=== PATIENT | male | born 1960 | race American Indian/Alaskan Native ===

== ENCOUNTER 2017-02-05 07:19 | Observation (INO) | payer OTHER ==
[2017-02-05 07:24] VITALS: TEMP 98.1
--- NOTE | 2017-02-05 07:37 | C.PDOC ---
Chief Complaint (Nursing): Abdominal Pain Past Medical History Vital Signs: Last Vital Signs Temp 98.1 F 02/05/17 07:23 Pulse 62 02/05/17 07:23 Resp 14 02/05/17 07:23 BP 185/111 H 02/05/17 07:23 Pulse Ox 100 02/05/17 07:23 Family History: States: Unknown Family Hx - Social History Hx Alcohol Use: Yes Hx Substance Use: No - Immunization History Hx Tetanus Toxoid Vaccination: No Hx Influenza Vaccination: No Hx Pneumococcal Vaccination: No ED Course And Treatment O2 Sat by Pulse Oximetry: 100 Disposition - Disposition Forms: [employer] ([place])
--- NOTE | 2017-02-05 07:53 | C.PDOC ---
History Of Present Illness 56-YEAR-OLD MALE, PRESENTS TO THE EMERGENCY DEPARTMENT WITH COMPLAINTS OF R SIDED ABD PAIN SINCE YEST MORNING. PAIN IS WAX WANE +NAUSEA. PS HO CONSTIPATION BUT NO RELIEF W MG CITRATE. NO FEVER, UTI SX. DENIES PSH. PS "PAIN MAKES MY BLOOD PRESSURE HIGH" EXAM MILD DIST NONTOXIC ABD +RLQ/RUQ TEND MILD SOFT NO R/G GOOD TURGOR REMAINDER NEG Time Seen by Provider: 02/05/17 07:37 Chief Complaint (Nursing): Abdominal Pain History Per: Patient History/Exam Limitations: no limitations Onset/Duration Of Symptoms: Days Past Medical History Reviewed: Historical Data, Nursing Documentation, Vital Signs Vital Signs: Last Vital Signs Temp 98.1 F 02/05/17 07:23 Pulse 69 02/05/17 12:01 Resp 16 02/05/17 12:01 BP 149/75 02/05/17 12:01 Pulse Ox 98 02/05/17 12:01 Family History: States: No Known Family Hx - Social History Hx Alcohol Use: Yes Hx Substance Use: No - Immunization History Hx Tetanus Toxoid Vaccination: No Hx Influenza Vaccination: No Hx Pneumococcal Vaccination: No Review Of Systems Except As Marked, All Systems Reviewed And Found Negative. Constitutional: Negative for: Fever Cardiovascular: Negative for: Chest Pain Respiratory: Negative for: Cough, Shortness of Breath Gastrointestinal: Positive for: Nausea, Abdominal Pain, Constipation Musculoskeletal: Negative for: Back Pain Neurological: Negative for: Weakness, Numbness, Headache, Dizziness Physical Exam - Physical Exam Appears: Non-toxic, No Acute Distress Skin: Warm, Dry, No Rash, Other (good turgor) Eye(s): bilateral: Normal Inspection Oral Mucosa: Moist Lips: Normal Appearing Neck: Normal ROM Chest: Symmetrical Cardiovascular: Rhythm Regular, No Murmur Respiratory: Normal Breath Sounds, No Accessory Muscle Use Gastrointestinal/Abdominal: Soft, Tenderness (RLQ/RUQ), No Guarding, No Rebound Extremity: Normal ROM Neurological/Psych: Oriented x3, Normal Speech ED Course And Treatment - Laboratory Results Result Diagrams: 02/05/17 08:21 02/05/17 08:21 ECG: Interpreted By In ECG Rhythm: Sinus Bradycardia ECG Interpretation: No Acute Changes Rate From EC O2 Sat by Pulse Oximetry: 100 Pulse Ox Interpretation: Normal ED OBSERVATION Discharge: Yes Date of observation admission: 02/05/17 Time of observation admission: 07:45 - Observation admission statement Patient is being placed in observation because:: ABD PAIN, NAUSEA - Goals of Observation Goals of observation are:: SX IMPROVE, NEG ACUT EABD - Progress Note Progress Note: 02/05/17 10:37 CO RECUR PAIN. EXAM [facility] VSS. WILL US RO ACUTE MALACHI 02/05/17 11:47 FEELS BETTER. ABD NEG. NO S/S ACUTE ABD. Disposition Counseled Patient/Family Regarding: Studies Performed, Diagnosis, Need For Followup, Rx Given - Disposition Disposition: HOME/ ROUTINE Disposition Time: 11:48 Condition: IMPROVED - Clinical Impression Clinical Impression: Biliary colic - Scribe Statement The provider has reviewed the documentation as recorded by the Scribe (Ya Lopez) All medical record entries made by the Scribe were at my direction and personally dictated by me. I have reviewed the chart and agree that the record accurately reflects my personal performance of the history, physical exam, medical decision making, and the department course for this patient. I have also personally directed, reviewed, and agree with the discharge instructions and disposition.
[2017-02-05] MEDS ORDERED: Sodium Chloride 0.9% 1,000 ML IV ONE (07:54)
[2017-02-05] MEDS ORDERED: Iohexol 240 (50 ml) PO STA (07:54)
[2017-02-05] MEDS ORDERED: Sodium Chloride 0.9% 1,000 ML ONE (08:24)
[2017-02-05] MEDS ORDERED: Morphine 4 MG/ML VIAL ONE ×2 (08:24→10:43)
[2017-02-05] MEDS ORDERED: Iohexol 240 (50 ml) ONE (08:24)
[2017-02-05 08:26] LABS: BASO % 0.5 % (0.0-2.0); EOS % 0.2 % (0.0-4.0); HEMATOCRIT 42.3 % (35.0-51.0); LYMPH # 0.4 K/uL (1.0-4.3); LYMPH % 7.1 % (20.0-40.0); MEAN CORPUSCULAR HEMOGLOBIN 26.4 pg (27.0-31.0); MEAN CORPUSCULAR HGB CONC 33.4 g/dL (33.0-37.0); MEAN PLATELET VOLUME 8.2 fL (7.2-11.7); MONO # 0.3 K/uL (0.0-0.8); MONO % 5.1 % (0.0-10.0); NRBC % 0.1 % (0.0-2.0); PLATELET COUNT 216 K/uL (130-400); WHITE BLOOD COUNT 5.2 K/uL (4.8-10.8)
[2017-02-05 08:34] LABS: CHLORIDE 103 mmol/L (98-107); POTASSIUM 3.7 mmol/L (3.6-5.2); SODIUM 140 mmol/L (132-148)
[2017-02-05 08:36] LABS: BILIRUBIN,TOTAL 0.6 mg/dL (0.2-1.3); GFR AFRICAN-AMERICAN > 60
[2017-02-05 08:37] LABS: ALB/GLOB RATIO 1.1 (1.0-2.1); ALKALINE PHOSPHATASE 146 U/L (38-126); ALT/SGPT 47 U/L (21-72); AST/SGOT 39 U/L (17-59); BLOOD UREA NITROGEN 11 mg/dL (9-20); CALCIUM 8.6 mg/dl (8.6-10.4); CARBON DIOXIDE 24 mmol/L (22-30); GLUCOSE,RANDOM 101 mg/dL (75-110)
[2017-02-05 08:47] LABS: RBC URINE 21 /hpf (0-3); URINE BILIRUBIN NEGATIVE (NEGATIVE); URINE COLOR Yellow (YELLOW); URINE GLUCOSE (UA) NORMAL (Normal); URINE KETONE NEGATIVE (NEGATIVE); URINE LEUKOCYTE ESTERASE TRACE Leu/uL (Negative); URINE PROTEIN NEGATIVE (NEGATIVE); URINE UROBILINOGEN NORMAL mg/dL (0.2-1.0); WBC URINE 6 /hpf (0-5)
[2017-02-05 08:49] LABS: URINE BLOOD SMALL (NEGATIVE)
[2017-02-05 08:56] LABS: NEUTROPHIL 91 % (50-75); TOTAL CELLS COUNTED 100
[2017-02-05] MEDS ORDERED: Iohexol 300 100 ML IJ ONE (09:12)
--- NOTE | 2017-02-05 10:29 | CT ---
PROCEDURE: CT Abdomen and Pelvis with and without intravenous contrast HISTORY: R SIDED abd pain COMPARISON: None. TECHNIQUE: Axial images of the abdomen were obtained in the pre contrast, portal venous and delayed phases of enhancement. Coronal and sagittal reformats were generated. Contrast dose: Omnipaque 300, 100 cc Radiation dose: Total exam DLP = 2402 mGy-cm. This CT exam was performed using one or more of the following dose reduction techniques: Automated exposure control, adjustment of the mA and/or kV according to patient size, and/or use of iterative reconstruction technique. FINDINGS: LOWER THORAX: Cardiomegaly is noted with trace bilateral basilar dependent atelectasis. Small hiatal hernia is also encounter. LIVER: No discrete mass is appreciated throughout the liver however there is borderline diffuse intrahepatic biliary dilatation. GALLBLADDER AND BILE DUCTS: The gallbladder is distended with numerous calculi but no significant mural thickening or pericholecystic fluid collection is identified at this time. No definite common bile duct dilatation appreciable. No radiodense choledocholithiasis. PANCREAS: Unremarkable. No gross lesion or ductal dilatation. SPLEEN: Unremarkable. ADRENALS: Unremarkable. No mass. KIDNEYS AND URETERS: There is no obstructive uropathy or delayed nephrogram bilaterally. No definite radiodense urolithiasis bilaterally including the bilateral ureters. Delayed imaging reveals unremarkable bilateral pelvocaliceal systems and proximal to mid ureters. The distal ureters are opacified. A mildly enlarged prostate gland of left urinary bladder base with the urinary bladder otherwise unremarkable appearing. VASCULATURE: Unremarkable. No aortic aneurysm. BOWEL: [place] small-bowel appears unremarkable diffusely. There is no bowel obstruction. Diffuse colonic diverticular change are appreciate without diverticulitis acutely. APPENDIX: Normal appendix. PERITONEUM: A tiny umbilical hernia containing a contains a minimal amount of perineum but no bowel. . No free fluid. No free air. LYMPH NODES: Unremarkable. No enlarged lymph nodes. BLADDER: As discussed and renal in ureter section. REPRODUCTIVE: Enlarged prostate gland. BONES: No acute fracture. OTHER FINDINGS: None. IMPRESSION: 1. No obstructive uropathy bilaterally or perinephric reaction. Urinary bladder is unremarkable with the exception of lifting of the urinary bladder base by an enlarged prostate gland. 2. A distended the gallbladder is appreciated filled with calculi but with no obvious pattern to suggest cholecystitis at this time. Clinical correlation is advised as there is a borderline intrahepatic biliary dilatation. Common bile duct appears normal caliber. Consider right upper quadrant ultrasound for further characterization. 3. Diffuse colonic diverticular changes, nonacute. 4. Incidental cardiomegaly.
[2017-02-05 10:45] VITALS: RESP 16
--- NOTE | 2017-02-05 11:36 | US ---
HISTORY: GALLSTONES RO ACUTE MALACHI COMPARISON: Abdomen and pelvis CT with contrast 02/05/2017. TECHNIQUE: Sonographic evaluation of the right upper quadrant of the abdomen. FINDINGS: LIVER: Measures 16.2 cm in length. Normal echogenicity of the liver parenchyma. No mass. No prominent intrahepatic drake trace pericapsular e duct dilatation. GALLBLADDER: The gallbladder is distended with numerous calculi shadowing posteriorly. Mural thickening is identified up to 3.9 mm. No pericholecystic fluid collection identified. Cholecystitis is not excluded however there is no sonographic Wiseman's sign. Clinically correlate further. COMMON BILE DUCT: Measures 4.2 mm. No stones. No dilatation. PANCREAS: Completely obscured overlying bowel gas. RIGHT KIDNEY: Measures 10.5 cm in length. Normal echogenicity. No calculus, mass, or hydronephrosis. AORTA: No aneurysmal dilatation. IVC: Unremarkable. OTHER FINDINGS: None . IMPRESSION: A distended gallbladder is appreciate the with numerous calculi with mural thickening up to 3.9 mm. No pericholecystic fluid collection or positive sonographic Wiseman's sign. Clinically correlate nevertheless for possible cholecystitis. Pancreas is completely obscured by overlying bowel gas with remainder the examination unremarkable.
[2017-02-05] MEDS ORDERED: Oxycodone/Acetaminophen 5/325 mg Tab PO STA (11:47)
[2017-02-05 12:12] VITALS: BP 149/75; PULSE 69
[2017-02-05 13:19] VITALS: O2SAT 100
--- NOTE | 2017-02-09 00:38 | CARD ---
APPROVED REPORT EKG Measurement Heart [id number] <Conclusion> Sinus bradycardia Minimal voltage criteria for LVH, may be normal variant Borderline ECG
== END 2017-02-05 11:48 | disposition home or self-care (01) ==
LOC: C.ER 07:19 → C.9OBSV 07:45
PROVIDERS: ADMIT Emergency Medicine; ATTEND Emergency Medicine
DX: K80.70 Calculus of gallbladder and bile duct without cholecystitis without obstruction (principal); R10.9 Unspecified abdominal pain; K59.00 Constipation, unspecified
CPT/HCPCS: 36415; 74178; 76705; 80053; 81001; 83690; 85025; 96374; 96375; 96376; 99285; G0378; J2270; J2405; J7040; Q9966; Q9967

== ENCOUNTER 2017-03-07 07:50 | Inpatient (IN) | payer OTHER ==
[2017-03-07 08:13] VITALS: BMI 36.9
[2017-03-07] MEDS ORDERED: Aluminum Hydroxide/Magnesium Hydroxide Susp (30 mL) PO STA (08:23)
[2017-03-07] MEDS ORDERED: Sodium Chloride 0.9% 1,000 ML IV ONE ×2 (08:23→15:54)
--- NOTE | 2017-03-07 08:26 | C.PDOC ---
History Of Present Illness 56 yr old male with PMHx of constipation, seen 2 times in past for similar symptoms, presents to the ER with complaints of abdominal heaviness and urge to move his bowel but is unable to. Patient also reports of nausea. Prior visits were reviewed, which shows patient had a CAT scan with no obstruction. Patient denies fever, chills, chest pain, SOB, vomiting, dysuria, weakness or numbness. Time Seen by Provider: 03/07/17 08:14 Chief Complaint (Nursing): GI Problem History Per: Patient History/Exam Limitations: no limitations Onset/Duration Of Symptoms: Days Current Symptoms Are (Timing): Still Present Past Medical History Reviewed: Historical Data, Nursing Documentation, Vital Signs Vital Signs: Last Vital Signs Temp 98.6 F 03/07/17 17:46 Pulse 63 03/07/17 17:46 Resp 18 03/07/17 17:46 BP 184/96 H 03/07/17 17:46 Pulse Ox 99 03/07/17 17:46 - Medical History PMH: HTN Family History: States: No Known Family Hx - Social History Hx Alcohol Use: Yes ( PER PATIENT) Hx Substance Use: No - Immunization History Hx Tetanus Toxoid Vaccination: No Hx Influenza Vaccination: No Hx Pneumococcal Vaccination: No Review Of Systems Except As Marked, All Systems Reviewed And Found Negative. Constitutional: Negative for: Fever, Chills Cardiovascular: Negative for: Chest Pain Respiratory: Negative for: Shortness of Breath Gastrointestinal: Positive for: Nausea, Constipation. Negative for: Vomiting Genitourinary: Negative for: Dysuria Neurological: Negative for: Weakness, Numbness Physical Exam - Physical Exam Appears: Non-toxic, No Acute Distress Skin: Warm, Dry, No Rash Oral Mucosa: Moist Gastrointestinal/Abdominal: Normal Exam, Soft, No Tenderness, No Guarding, No Rebound Rectal: Other (Normal external exam. No skin tags. No hemorrhoids. ) Extremity: Normal ROM, No Swelling Neurological/Psych: Oriented x3, Normal Speech Gait: Steady ED Course And Treatment - Laboratory Results Result Diagrams: 03/07/17 08:42 03/07/17 08:42 O2 Sat by Pulse Oximetry: 100 (RA) Pulse Ox Interpretation: Normal - Other Rad X-Ray - Obstructive Series X-Ray: Viewed By Me, Read By Radiologist Interpretation: PROCEDURE: Radiographs of the chest and abdomen (obstructive series). HISTORY: abd pain. COMPARISON: No prior. TECHNIQUE: AP radiograph of the chest, with upright and supine radiographs of the abdomen. FINDINGS: CHEST: Lungs: Clear. Cardiovascular: Normal size heart. No pulmonary vascular congestion. Pleura: No pleural fluid. No pneumothorax. Other findings: None. ABDOMEN AND PELVIS: Bowel: No dilated bowel loops. Mild moderate stool retention. Very few small bowel air-fluid levels noted. No evidence of mechanical obstruction. Free air: None. Bones: For a thoracic spinal right acromioclavicular joint arthrosis bilateral superolateral hip joint space narrowing with bilateral acetabular cystic arthropathic changes left greater than right. Other findings: Right hemipelvic phlebolith. IMPRESSION: . No evidence of mechanical bowel obstruction. No free air. Nonspecific bowel gas pattern. Arthropathic changes Medical Decision Making Medical Decision Making: PLAN: * X-Ray - Obstructive Series * Drug Screen * CBC * CMP * Urinalysis * Phosphate Enema [place] * Maalox PO * Pepcid IVP * Toradol IVP * Zofran IVP * Sodium Chloride IV PROGRESS: 14:38 - On reevaluation, patient reports mild improvement of symptoms after fleet x2 and mg citrate. Patient c/p persistent pain and constipation. C/O inability to sleep. No success with fleet and mag citrate. Will do CT. ED OBSERVATION - Observation admission statement Patient is placed on observation because of need: for resolution of acute symptoms - Goals of Observation Goals of Observation: Improvement of pain - Progress Note Observation Progress Note: Patient is awake, vitals are stable, but symptoms persist Disposition Discussed With DrHeidi: Mickey Gonzalez Counseled Patient/Family Regarding: Studies Performed, Diagnosis - Disposition Disposition Time: 18:43 Condition: STABLE - Clinical Impression Clinical Impression: Constipation - Scribe Statement The provider has reviewed the documentation as recorded by the Stephanie Hernandez Provider Attestation: All medical record entries made by the Stephanie were at my direction and personally dictated by me. I have reviewed the chart and agree that the record accurately reflects my personal performance of the history, physical exam, medical decision making, and the department course for this patient. I have also personally directed, reviewed, and agree with the discharge instructions and disposition. Physician Patient Turnover Patient Signed Over To: Mickey Gonzalez Handoff Comments: abdominal pain, constipation, pending CT and final dispo.
[2017-03-07] MEDS ORDERED: Sodium Chloride 0.9% 1,000 ML ONE (08:31)
[2017-03-07] MEDS ORDERED: Aluminum Hydroxide/Magnesium Hydroxide Susp (30 mL) ONE (08:31)
[2017-03-07 08:50] LABS: BASO % 0.4 % (0.0-2.0); EOS % 0.3 % (0.0-4.0); HEMATOCRIT 41.1 % (35.0-51.0); LYMPH # 1.2 K/uL (1.0-4.3); LYMPH % 12.3 % (20.0-40.0); MEAN CORPUSCULAR HEMOGLOBIN 26.6 pg (27.0-31.0); MEAN CORPUSCULAR HGB CONC 34.1 g/dL (33.0-37.0); MEAN PLATELET VOLUME 7.9 fL (7.2-11.7); MONO # 0.4 K/uL (0.0-0.8); MONO % 4.3 % (0.0-10.0); NRBC % 0.2 % (0.0-2.0)
[2017-03-07 08:52] LABS: WHITE BLOOD COUNT 9.7 K/uL (4.8-10.8)
[2017-03-07 08:57] LABS: CHLORIDE 98 mmol/L (98-107); POTASSIUM 3.5 mmol/L (3.6-5.2); SODIUM 139 mmol/L (132-148)
[2017-03-07 08:59] LABS: GFR AFRICAN-AMERICAN > 60
[2017-03-07 09:00] LABS: ALB/GLOB RATIO 1.2 (1.0-2.1); ALKALINE PHOSPHATASE 118 U/L (38-126); ALT/SGPT 33 U/L (21-72); AST/SGOT 33 U/L (17-59); BILIRUBIN,TOTAL 0.8 mg/dL (0.2-1.3); BLOOD UREA NITROGEN 14 mg/dL (9-20); CARBON DIOXIDE 22 mmol/L (22-30); GLUCOSE,RANDOM 127 mg/dL (75-110); TOTAL PROTEIN 7.9 g/dL (6.3-8.3)
[2017-03-07 09:01] LABS: CALCIUM 8.5 mg/dl (8.6-10.4)
--- NOTE | 2017-03-07 09:07 | RAD ---
PROCEDURE: Radiographs of the chest and abdomen (obstructive series) HISTORY: abd pain COMPARISON: No prior. TECHNIQUE: AP radiograph of the chest, with upright and supine radiographs of the abdomen. FINDINGS: CHEST: Lungs: Clear. Cardiovascular: Normal size heart. No pulmonary vascular congestion. Pleura: No pleural fluid. No pneumothorax. Other findings: None. ABDOMEN AND PELVIS: Bowel: No dilated bowel loops. Mild moderate stool retention. Very few small bowel air-fluid levels noted. No evidence of mechanical obstruction. Free air: None. Bones: For a thoracic spinal right acromioclavicular joint arthrosis bilateral superolateral hip joint space narrowing with bilateral acetabular cystic arthropathic changes left greater than right. Other findings: Right hemipelvic phlebolith IMPRESSION: . No evidence of mechanical bowel obstruction. No free air. Nonspecific bowel gas pattern. Arthropathic changes
[2017-03-07 09:41] LABS: RBC URINE 8 /hpf (0-3); URINE BACTERIA OCC (<OCC); URINE BILIRUBIN NEGATIVE (NEGATIVE); URINE BLOOD 1+ (NEGATIVE); URINE COLOR Yellow (YELLOW); URINE GLUCOSE (UA) NORMAL (Normal); URINE KETONE TRACE mg/dL (NEGATIVE); URINE LEUKOCYTE ESTERASE 1+ Leu/uL (Negative); URINE PROTEIN NEGATIVE (NEGATIVE); WBC URINE 18 /hpf (0-5)
[2017-03-07] MEDS ORDERED: Magnesium Citrate Oral SOL (300 ml) PO ONE (10:58)
[2017-03-07] MEDS ORDERED: Magnesium Citrate Oral SOL (300 ml) ONE (11:21)
[2017-03-07] MEDS ORDERED: Morphine 4 MG/ML VIAL ONE (15:59)
[2017-03-07] MEDS ORDERED: Iohexol 240 (50 ml) ONE ×2 (15:59→16:29)
[2017-03-07] MEDS ORDERED: Iohexol 240 (50 ml) PO ONE (16:23)
[2017-03-07] MEDS ORDERED: Iohexol 300 100 ML IJ ONE (16:52)
--- NOTE | 2017-03-07 19:00 | CT ---
PROCEDURE: CT Abdomen and Pelvis with oral and IV contrast. HISTORY: pain COMPARISON: Limited abdominal ultrasound performed 02/05/17, CT abdomen and pelvis without and with IV contrast performed 02/05/17 TECHNIQUE: Contiguous axial images of the abdomen and pelvis. Oral and IV contrast was administered. Coronal and Sagittal reformats generated and reviewed. Contrast dose: 100 cc Omnipaque 300 Radiation dose: Total exam DLP = 759.34 mGy-cm. This CT exam was performed using one or more of the following dose reduction techniques: Automated exposure control, adjustment of the mA and/or kV according to patient size, and/or use of iterative reconstruction technique. FINDINGS: LOWER THORAX: No visible consolidation, pleural effusion, or pneumothorax. Mild cardiomegaly. Oral contrast is noted within the distal esophagus compatible with gastroesophageal reflux. Small hiatal hernia. LIVER: Unremarkable. GALLBLADDER AND BILE DUCTS: Distended gallbladder with suspected calculi. Mild gallbladder wall thickening/ pericholecystic edema. PANCREAS: Unremarkable. SPLEEN: Unremarkable. ADRENALS: Unremarkable. KIDNEYS AND URETERS: The kidneys enhance symmetrically. No hydronephrosis or obstructing renal calculus. Probable bilateral renal cysts. Evidence of retained contrast within renal collecting system suggests recent outside study; correlate clinically. BLADDER: Mildly thick-walled urinary bladder may be exaggerated by under distension. REPRODUCTIVE: The prostate gland measures approximately 3.1 x 4.5 cm and contains calcifications. APPENDIX: The appendix appears within normal limits of caliber. No secondary signs of acute appendicitis. BOWEL: The stomach is nondistended. The bowel loops appear within normal limits of caliber without evidence of intestinal obstruction. Diverticulosis without CT evidence acute diverticulitis. PERITONEUM: No significant free fluid. No definite free air. LYMPH NODES: No bulky lymphadenopathy identified. VASCULATURE: No aortic aneurysm. BONES: Degenerative changes. OTHER FINDINGS: 14 mm fat containing umbilical hernia. IMPRESSION: Distended gallbladder with suspected calculi. Mild gallbladder wall thickening/ pericholecystic edema. Correlate clinically for possibility of acute cholecystitis. Evidence of retained contrast within renal collecting system suggests recent outside study; correlate clinically. Diverticulosis without CT evidence of acute diverticulitis. Additional findings as above.
[2017-03-07] MEDS ORDERED: Ciprofloxacin 400mg/200ml D5W 400 MG/200 ML BAG IVPB STA (20:17)
[2017-03-07] MEDS ORDERED: metroNIDAZOLE IV 500 mg/100 ml 500 MG/100 ML BAG IVPB ONE (20:30)
[2017-03-07] MEDS ORDERED: metroNIDAZOLE IV 500 mg/100 ml 500 MG/100 ML BAG IVPB SCH (20:30)
[2017-03-07] MEDS ORDERED: metroNIDAZOLE IV 500 mg/100 ml 500 MG/100 ML BAG ONE (21:17)
[2017-03-07] MEDS ORDERED: Ciprofloxacin 400mg/200ml D5W 400 MG/200 ML BAG IVPB ONE (21:42)
--- NOTE | 2017-03-07 22:14 | CP.PCM.HP ---
History of Present Illness - History of Present Illness History of Present Illness: Cheif complain: Right upper qaudrant pain HPI: 56 Y/O AA old male with PMHx of HTN, constipation, seen 2 times in past for similar symptoms, presents to the ER with complaints of abdominal heaviness and urge to move his bowel but is unable to. Patient also reports of nausea. Prior visits were reviewed, which shows patient had a CAT scan with no obstruction. Patient denies fever, chills, chest pain, SOB, vomiting, dysuria, weakness or numbness.Pt does not have any h/o diabetes, non smoker, developed RUQ pain few days ago and was seen by his PMD and diagnosed with stones in gall bladder, he underwent cholecystectomy now after evaluation, beacuse of his recurrent onset of RUQ pain radiating to back. he is post op and had mild discomfort at surgical dite. Present on Admission - Present on Admission Any Indicators Present on Admission: Yes Review of Systems - Review of Systems Systems not reviewed;Unavailable: Acuity of Condition - Constitutional Constitutional: Fatigue, Lethargy, Malaise - EENT Eyes: absent: As Per HPI, Blind Spots, Blurred Vision, Change in Vision, Decreased Night Vision, Diplopia, Discharge, Dry Eye, Exophthalmos, Floaters, Irritation, Itchy Eyes, Loss of Peripheral Vision, Pain, Photophobia, Requires Corrective Lenses, Sees Flashes, Spots in Vision, Tunnel Vision, Other Visual Disturbances, Loss of Vision, Other Nose/Mouth/Throat: absent: As Per HPI, Epistaxis, Nasal Congestion, Nasal Discharge, Nasal Obstruction, Nasal Trauma, Nose Pain, Post Nasal Drip, Sinus Pain, Sinus Pressure, Bleeding Gums, Change in Voice, Dental Pain, Dry Mouth, Dysphagia, Halitosis, Hoarsness, Lip Swelling, Mouth Lesions, Mouth Pain, Odynophagia, Sore Throat, Throat Swelling, Tongue Swelling, Facial Pain, Neck Pain, Neck Mass, Other - Cardiovascular Cardiovascular: absent: As Per HPI, Acrocyanosis, Chest Pain, Chest Pain at Rest , Chest Pain with Activity, Claudication, Diaphoresis, Dyspnea, Dyspnea on Exertion, Edema, Irregular Heart Rhythm, Pain Radiating to Arm/Neck/Jaw, Leg Edema, Leg Ulcers, Lightheadedness, Orthopnea, Palpitations, Paroxysmal Nocturnal Dyspnea, Pedal Edema, Radiating Pain, Rapid Heart Rate, Slow Heart Rate, Syncope, Other - Gastrointestinal Gastrointestinal: Abdominal Pain, Belching, Constipation, Heartburn. absent: As Per HPI, Bloating, Change in Bowel Habits, Change in Stool Character, Coffee Ground Emesis, Cramping, Diarrhea, Dyspepsia, Dysphagia, Early Satiety, Excessive Flatus, Fecal Incontinence, Hematemesis, Hematochezia, Loose Stools, Melena, Nausea, Odynophagia, Temesmus, Vomiting, Other - Genitourinary Genitourinary: absent: As Per HPI, Change in Urinary Stream, Difficulty Urinating, Dysuria, Flank Pain, Hematuria, Pyuria, Nocturia, Urinary Incontinence, Urinary Frequency, Urinary Hesitance, Urinary Urgency, Voiding Freq/Small Amts, Freq UTI, Hx Renal/Bladder Calculi, Hx /Renal Surgery, Bladder Distension, Other - Musculoskeletal Musculoskeletal: absent: As Per HPI, Abnormal Gait, Arthralgias, Atrophy, Back Pain, Deformity, Joint Swelling, Limited Range of Motion, Loss of Height, Muscle Cramps, Muscle Weakness, Myalgias, Neck Pain, Numbness, Radiating Pain into Limb, Stiffness, Tingling, Other - Integumentary Integumentary: absent: As Per HPI, Acne, Alopecia, Bleeding Lesions, Change in Hair, Change in Nails, Change in Pigmentation, Changing Lesions, Dry Skin, Erythema, Furuncle, Hirsutism, Lesions, New Lesions, Non-Healing Lesions, Photosensitivity, Pruritus, Rash, Skin Pain, Skin Ulcer, Sores, Striae, Swelling , Unusual Bruising, Wounds, Jaundice, Other - Neurological Neurological: absent: As Per HPI, Abnormal Gait, Abnormal Hearing, Abnormal Movements, Abnormal Speech, Behavioral Changes, Burning Sensations, Confusion, Convulsions, Disequilibrium, Dizziness, Numbness, Focal Weakness, Frequent Falls , Headaches, Lack of Coordination, Loss of Vision, Memory Loss, Paresthesias, Radicular Pain, Restless Legs, Sensory Deficit, Syncope, Tingling, Tremor, Vertigo, Weakness, Other Visual Disturbances, Other Past Patient History - Past Social History Smoking Status: Never Smoked - CARDIAC Hx Hypertension: Yes - PSYCHIATRIC Hx Substance Use: No - SURGICAL HISTORY Hx Surgeries: Yes Other/Comment: COLLAPSED LUNG PER PATIENT - ANESTHESIA Hx Anesthesia: Yes Hx Anesthesia Reactions: No Meds Allergies/Adverse Reactions: Allergies Allergy/AdvReac Type Severity Reaction Status Date / Time No Known Allergies Allergy Verified 06/11/16 23:36 Physical Exam - Constitutional Appears: No Acute Distress - Head Exam Head Exam: ATRAUMATIC, NORMAL INSPECTION, NORMOCEPHALIC - Eye Exam Eye Exam: EOMI, Normal appearance, PERRL Pupil Exam: NORMAL ACCOMODATION, PERRL - Respiratory Exam Respiratory Exam: Clear to Auscultation Bilateral, NORMAL BREATHING PATTERN - Cardiovascular Exam Cardiovascular Exam: REGULAR RHYTHM - GI/Abdominal Exam GI & Abdominal Exam: Tenderness Additional comments: RUQ - Back Exam Back exam: NORMAL INSPECTION - Neurological Exam Neurological exam: Alert, CN II-XII Intact, Normal Gait, Oriented x3, Reflexes Normal Results - Vital Signs Recent Vital Signs: Last Vital Signs Temp 98.6 F 03/07/17 21:42 Pulse 58 L 03/07/17 21:42 Resp 18 03/07/17 21:42 BP 174/89 H 03/07/17 21:42 Pulse Ox 98 03/07/17 21:42 - Labs Result Diagrams: 03/07/17 08:42 03/08/17 13:37 Labs: Laboratory Results - last 24 hr 03/07/17 03/07/17 03/07/17 08:42 08:42 09:30 WBC 9.7 D RBC 5.27 Hgb 14.0 Hct 41.1 MCV 78.0 L MCH 26.6 L MCHC 34.1 RDW 14.0 Plt Count 224 MPV 7.9 Neut % (Auto) 82.7 H Lymph % (Auto) 12.3 L [place] % (Auto) 4.3 Eos % (Auto) 0.3 Baso % (Auto) 0.4 Neut # 8.0 H Lymph # 1.2 [place] # 0.4 Eos # 0.0 Baso # 0.0 Sodium 139 Potassium 3.5 L Chloride 98 Carbon Dioxide 22 Anion Gap 23 H BUN 14 Creatinine 1.0 Est GFR ( Amer) > 60 Est GFR (Non-Af Amer) > 60 Random Glucose 127 H Calcium 8.5 L Total Bilirubin 0.8 AST 33 ALT 33 Alkaline Phosphatase 118 Total Protein 7.9 Albumin 4.2 Globulin 3.6 Albumin/Globulin Ratio 1.2 Lipase 161 Urine Color Yellow Urine Clarity Hazy Urine pH 7.0 Ur Specific [place] 1.017 Urine Protein Negative Urine Glucose (UA) Normal Urine Ketones Trace Urine Blood 1+ H Urine Nitrate Negative Urine Bilirubin Negative Urine Urobilinogen 2.0 Ur Leukocyte Esterase 1+ H Urine WBC (Auto) 18 H Urine RBC (Auto) 8 H Ur Squamous Epith Cells 3 Amorphous Sediment Rare H Urine Bacteria Occ H Urine Opiates Screen Urine Methadone Screen Ur Barbiturates Screen Ur Phencyclidine Scrn Ur Amphetamines Screen U Benzodiazepines Scrn U Oth Cocaine Metabols U Cannabinoids Screen 03/07/17 09:30 WBC RBC Hgb Hct MCV MCH MCHC RDW Plt Count MPV Neut % (Auto) Lymph % (Auto) [place] % (Auto) Eos % (Auto) Baso % (Auto) Neut # Lymph # [place] # Eos # Baso # Sodium Potassium Chloride Carbon Dioxide Anion Gap BUN Creatinine Est GFR ( Amer) Est GFR (Non-Af Amer) Random Glucose Calcium Total Bilirubin AST ALT Alkaline Phosphatase Total Protein Albumin Globulin Albumin/Globulin Ratio Lipase Urine Color Urine Clarity Urine pH Ur Specific [place] Urine Protein Urine Glucose (UA) Urine Ketones Urine Blood Urine Nitrate Urine Bilirubin Urine Urobilinogen Ur Leukocyte Esterase Urine WBC (Auto) Urine RBC (Auto) Ur Squamous Epith Cells Amorphous Sediment Urine Bacteria Urine Opiates Screen Negative Urine Methadone Screen Negative Ur Barbiturates Screen Negative Ur Phencyclidine Scrn Negative Ur Amphetamines Screen Negative U Benzodiazepines Scrn Negative U Oth Cocaine Metabols Negative U Cannabinoids Screen Negative Assessment & Plan (1) Constipation Status: Acute (2) Abdominal colic Status: Acute (3) Biliary colic Status: Acute
[2017-03-07] MEDS ORDERED: Nitroglycerin 2% Ointment Foilpak UD TOP SCH (22:45)
[2017-03-08] MEDS: Nitroglycerin 2% Ointment Foilpak UD TOP SCH ×5 (00:17→22:39)
[2017-03-08] MEDS: metroNIDAZOLE IV 500 mg/100 ml 500 MG/100 ML BAG IVPB SCH ×3 (04:37→20:30)
[2017-03-08] MEDS ORDERED: Lactated Ringer's 1,000 ML IV ONE ×3 (10:14→14:30)
[2017-03-08] MEDS ORDERED: Propofol 10 mg/ml Inj (20 ML) ONE (13:38)
[2017-03-08] MEDS ORDERED: Midazolam 2 MG/2 ML VIAL ONE (13:38)
[2017-03-08 13:48] LABS: CHLORIDE 97 mmol/L (98-107); POTASSIUM 4.3 mmol/L (3.6-5.2); SODIUM 135 mmol/L (132-148)
[2017-03-08 13:50] LABS: GFR AFRICAN-AMERICAN > 60
[2017-03-08 13:51] LABS: BLOOD UREA NITROGEN 9 mg/dL (9-20); CARBON DIOXIDE 28 mmol/L (22-30)
[2017-03-08 13:52] LABS: CALCIUM 8.6 mg/dl (8.6-10.4); GLUCOSE,RANDOM 106 mg/dL (75-110); INR 1.4
[2017-03-08] MEDS ORDERED: Rocuronium 10 mg/ml (5 ml) ONE (14:14)
[2017-03-08] MEDS ORDERED: Neostigmine Methylsulfate 3mg/3ml Syringe IV ONE (15:13)
[2017-03-08] MEDS ORDERED: HYDROmorphone 0.5 mg/0.5 ml ISec IVP PRN (15:52)
[2017-03-08] MEDS ORDERED: HYDROmorphone 0.5 mg/0.5 ml ISec ONE (15:55)
--- NOTE | 2017-03-08 19:13 | OP ---
PROCEDURE DATE: 03/08/2017 PREOPERATIVE DIAGNOSES: 1. Acute cholecystitis. 2. Incarcerated umbilical hernia. PROCEDURE PERFORMED: 1. Laparoscopic cholecystectomy. 2. Repair of incarcerated umbilical hernia. 3. Liver biopsy. SURGEON: Danielito Stewart MD. ANESTHESIA: General. BLOOD LOSS: 40 mL. POSTOPERATIVE CONDITION: Stable. INDICATIONS FOR SURGERY: This 56-year-old male found to have acute cholecystitis upon ultrasound in the emergency room. He is now admitted to the hospital and will undergo an urgent lap milagros today with mesh. GROSS FINDINGS: The patient also had an incarcerated umbilical hernia which was repaired at the time of surgery. Gallbladder was calcified and contained both stones and hardened sludge. In order to remove the gallbladder, some liver parenchyma also had to be removed with it. PROCEDURE: The patient was taken to the operating room. General anesthesia was administered and the abdomen was prepped and draped. A paraumbilical cutdown was performed. The umbilical hernia sac was dissected free and removed. A blunt port was then placed through the hernia defect and the abdomen was insufflated with CO2. Under direct vision, the remaining ports were placed. Gallbladder had multiple adhesions which were taken down both sharply and bluntly. It was also calcified and grasping it was difficult. However, adequate traction was obtained and the cystic duct was carefully dissected free. The gallbladder, cystic duct and common duct junction was carefully identified. Cystic duct was then clipped and divided. The cystic artery was identified, clipped and divided. The gallbladder was then carefully removed from the gallbladder bed using the Bovie. Portion of parenchyma had to be removed due to the severe inflammation and calcification of gallbladder. Once it was removed, it was placed in a retrieval bag and removed through a widened epigastric incision using the Bovie. A lateral rent in the liver was noted and repaired laparoscopically. The abdomen was then irrigated with saline until clear. Cullen drain was left in the gallbladder fossa. The umbilical hernia was repaired with interrupted 0 Monocryl suture. The wounds were irrigated with saline and simple closures were performed with clips. The patient tolerated the procedure well, returned to recovery room in stable condition. Danielito Stewart MD [facility] # [id number]
--- NOTE | 2017-03-08 22:45 | CP.PCM.PN ---
Subjective - Date & Time of Evaluation Date of Evaluation: 03/08/17 Time of Evaluation: 21:10 - Subjective Subjective: Pt seen and examined s/p CHolecystectomy, post op care Objective - Vital Signs/Intake and Output Vital Signs (last 24 hours): Temp Pulse Resp BP Pulse Ox 99.5 F 59 L 11 L 144/89 100 03/08/17 16:15 03/08/17 16:15 03/08/17 16:15 03/08/17 16:15 03/08/17 16:15 Intake and Output: 03/08/17 03/09/17 18:59 06:59 Intake Total 300 Output Total 415 Balance -115 - Medications Medications: Current Medications Famotidine (Pepcid) 20 mg IVP BID [facility] Last Admin: 03/08/17 18:18 Dose: 20 mg Heparin Sodium (Porcine) (Heparin) 5,000 units SC Q8 [facility] Last Admin: 03/08/17 22:29 Dose: 5,000 units Hydromorphone HCl (Dilaudid) 0.5 mg IVP Q10M PRN PRN Reason: Pain, severe (8-10) Ceftriaxone Sodium 1 gm/ (Sodium Chloride) 100 mls @ 100 mls/hr IVPB DAILY [facility] Last Admin: 03/08/17 10:00 Dose: 100 mls/hr Metronidazole (Flagyl) 500 mg in 100 mls @ 100 mls/hr IVPB Q8H [facility] Last Admin: 03/08/17 20:30 Dose: 100 mls/hr Dextrose/Sodium Chloride (Dextrose 5%/0.45% Ns 1000 Ml) 1,000 mls @ 100 mls/hr IV .Q10H [facility] Morphine Sulfate (Morphine) 2 mg IVP Q4 PRN PRN Reason: Pain, moderate (4-7) Last Admin: 03/08/17 18:24 Dose: 2 mg Nitroglycerin (Nitro-Bid 2% Oint) 0 ea TOP Q6H [facility] Last Admin: 03/08/17 22:39 Dose: 1 ea Pneumococcal Polyvalent Vaccine (Pneumovax 23 Vaccine) 0.5 ml IM .ONCE ONE Stop: 03/09/17 10:01 - Labs Labs: 03/07/17 08:42 03/08/17 13:37 PT 16.1 SECONDS (9.7-12.2) H 03/08/17 13:37 INR 1.4 03/08/17 13:37 APTT 30 SECONDS (21-34) 03/08/17 13:37 - Constitutional Appears: No Acute Distress - Head Exam Head Exam: ATRAUMATIC, NORMAL INSPECTION, NORMOCEPHALIC - Eye Exam Eye Exam: EOMI, Normal appearance, PERRL Pupil Exam: NORMAL ACCOMODATION, PERRL - Respiratory Exam Respiratory Exam: Clear to Ausculation Bilateral, NORMAL BREATHING PATTERN - Cardiovascular Exam Cardiovascular Exam: REGULAR RHYTHM, +S1, +S2. absent: Murmur - GI/Abdominal Exam GI & Abdominal Exam: Soft, Normal Bowel Sounds. absent: Tenderness Additional comments: post op - Rectal Exam Rectal Exam: Deferred Additional comments: cannot perform due to pt position - Neurological Exam Neurological Exam: Alert, Awake, CN II-XII Intact, Normal Gait, Oriented x3 - Psychiatric Exam Psychiatric exam: Normal Affect, Normal Mood Assessment and Plan (1) S/P cholecystectomy Assessment & Plan: S/P OR proceed diet out of bed to chair post op care Status: Acute (2) HTN (hypertension) Status: Acute (3) Constipation Status: Acute (4) Abdominal colic Status: Acute (5) Biliary colic Status: Acute
[2017-03-09 00:06] VITALS: RESP 20
[2017-03-09] MEDS: Dextrose 5%/0.45% NS 1,000 ML IV SCH ×3 (03:24→22:15)
[2017-03-09] MEDS: Nitroglycerin 2% Ointment Foilpak UD TOP SCH ×4 (05:30→22:47)
[2017-03-09] MEDS: metroNIDAZOLE IV 500 mg/100 ml 500 MG/100 ML BAG IVPB SCH ×3 (05:31→21:08)
--- NOTE | 2017-03-09 07:08 | CP.PCM.PN ---
Subjective - Date & Time of Evaluation Date of Evaluation: 03/09/17 Time of Evaluation: 20:00 - Subjective Subjective: s/p lap milagros, feeling better, c/o some post op pain Objective - Vital Signs/Intake and Output Vital Signs (last 24 hours): Temp Pulse Resp BP Pulse Ox 99 F 69 20 149/87 86 L 03/09/17 00:05 03/09/17 00:05 03/09/17 00:05 03/09/17 05:25 03/09/17 05:25 Intake and Output: 03/09/17 03/09/17 06:59 18:59 Intake Total 900 Output Total 10 Balance 890 - Medications Medications: Current Medications Famotidine (Pepcid) 20 mg IVP BID [facility] Last Admin: 03/08/17 18:18 Dose: 20 mg Heparin Sodium (Porcine) (Heparin) 5,000 units SC Q8 [facility] Last Admin: 03/08/17 22:29 Dose: 5,000 units Hydromorphone HCl (Dilaudid) 0.5 mg IVP Q10M PRN PRN Reason: Pain, severe (8-10) Ceftriaxone Sodium 1 gm/ (Sodium Chloride) 100 mls @ 100 mls/hr IVPB DAILY [facility] Last Admin: 03/08/17 10:00 Dose: 100 mls/hr Metronidazole (Flagyl) 500 mg in 100 mls @ 100 mls/hr IVPB Q8H [facility] Last Admin: 03/09/17 05:31 Dose: 100 mls/hr Dextrose/Sodium Chloride (Dextrose 5%/0.45% Ns 1000 Ml) 1,000 mls @ 100 mls/hr IV .Q10H [facility] Last Admin: 03/09/17 03:24 Dose: Not Given Morphine Sulfate (Morphine) 2 mg IVP Q4 PRN PRN Reason: Pain, moderate (4-7) Last Admin: 03/08/17 18:24 Dose: 2 mg Nitroglycerin (Nitro-Bid 2% Oint) 0 ea TOP Q6H [facility] Last Admin: 03/09/17 05:30 Dose: 0.5 ea Pneumococcal Polyvalent Vaccine (Pneumovax 23 Vaccine) 0.5 ml IM .ONCE ONE Stop: 03/09/17 10:01 - Labs Labs: 03/07/17 08:42 03/08/17 13:37 PT 16.1 SECONDS (9.7-12.2) H 03/08/17 13:37 INR 1.4 03/08/17 13:37 APTT 30 SECONDS (21-34) 03/08/17 13:37 - Constitutional Appears: No Acute Distress - Head Exam Head Exam: ATRAUMATIC, NORMAL INSPECTION, NORMOCEPHALIC - Eye Exam Eye Exam: EOMI, Normal appearance, PERRL Pupil Exam: NORMAL ACCOMODATION, PERRL - Respiratory Exam Respiratory Exam: Clear to Ausculation Bilateral, NORMAL BREATHING PATTERN - Cardiovascular Exam Cardiovascular Exam: REGULAR RHYTHM, +S1, +S2. absent: Murmur - GI/Abdominal Exam GI & Abdominal Exam: Soft, Normal Bowel Sounds. absent: Tenderness Assessment and Plan (1) S/P cholecystectomy Status: Acute (2) HTN (hypertension) Status: Acute (3) Constipation Status: Acute (4) Abdominal colic Status: Acute (5) Biliary colic Status: Acute
[2017-03-09 08:24] LABS: BASO % 0.1 % (0.0-2.0); HEMATOCRIT 37.5 % (35.0-51.0); LYMPH # 1.1 K/uL (1.0-4.3); LYMPH % 10.3 % (20.0-40.0); MEAN CELL VOLUME 79.2 fL (80.0-94.0); MEAN CORPUSCULAR HEMOGLOBIN 26.2 pg (27.0-31.0); MEAN CORPUSCULAR HGB CONC 33.1 g/dL (33.0-37.0); MEAN PLATELET VOLUME 8.4 fL (7.2-11.7); MONO # 0.9 K/uL (0.0-0.8); MONO % 8.4 % (0.0-10.0); RED CELL DISTRIBUTION WIDTH 14.1 % (11.5-14.5); WHITE BLOOD COUNT 11.1 K/uL (4.8-10.8)
[2017-03-09 08:56] LABS: CHLORIDE 98 mmol/L (98-107); POTASSIUM 4.5 mmol/L (3.6-5.2); SODIUM 134 mmol/L (132-148)
[2017-03-09 08:57] LABS: GFR AFRICAN-AMERICAN > 60
[2017-03-09 08:58] LABS: ALB/GLOB RATIO 0.9 (1.0-2.1); ALKALINE PHOSPHATASE 103 U/L (38-126); ALT/SGPT 139 U/L (21-72); AST/SGOT 183 U/L (17-59); BILIRUBIN,TOTAL 1.2 mg/dL (0.2-1.3); BLOOD UREA NITROGEN 13 mg/dL (9-20); CALCIUM 8.5 mg/dl (8.6-10.4); CARBON DIOXIDE 27 mmol/L (22-30); GLUCOSE,RANDOM 103 mg/dL (75-110); TOTAL PROTEIN 7.5 g/dL (6.3-8.3)
[2017-03-09] MEDS ORDERED: Pneumococcal 23-Valent Vaccine IM ONE (10:00)
[2017-03-09] MEDS ORDERED: Influenza Vaccine 60 mcg/0.5 mL SYR (4YR UP) IM ONE (10:00)
[2017-03-10] MEDS: Nitroglycerin 2% Ointment Foilpak UD TOP SCH ×2 (05:16→12:30)
[2017-03-10] MEDS: metroNIDAZOLE IV 500 mg/100 ml 500 MG/100 ML BAG IVPB SCH ×2 (05:17→13:28)
[2017-03-10 08:03] LABS: BASO % 0.3 % (0.0-2.0); EOS % 0.2 % (0.0-4.0); HEMATOCRIT 37.9 % (35.0-51.0); LYMPH # 1.1 K/uL (1.0-4.3); MEAN CELL VOLUME 78.8 fL (80.0-94.0); MEAN CORPUSCULAR HEMOGLOBIN 26.4 pg (27.0-31.0); MEAN CORPUSCULAR HGB CONC 33.5 g/dL (33.0-37.0); MEAN PLATELET VOLUME 7.9 fL (7.2-11.7); MONO # 0.6 K/uL (0.0-0.8); MONO % 7.1 % (0.0-10.0); RED CELL DISTRIBUTION WIDTH 14.1 % (11.5-14.5); WHITE BLOOD COUNT 8.1 K/uL (4.8-10.8)
[2017-03-10 08:19] LABS: CHLORIDE 101 mmol/L (98-107)
[2017-03-10 08:20] LABS: POTASSIUM 4.2 mmol/L (3.6-5.2); SODIUM 133 mmol/L (132-148)
[2017-03-10 08:22] LABS: ALB/GLOB RATIO 0.8 (1.0-2.1); ALKALINE PHOSPHATASE 109 U/L (38-126); AST/SGOT 123 U/L (17-59); CARBON DIOXIDE 25 mmol/L (22-30); GFR AFRICAN-AMERICAN > 60
[2017-03-10 08:23] LABS: ALT/SGPT 132 U/L (21-72); BLOOD UREA NITROGEN 11 mg/dL (9-20); CALCIUM 8.2 mg/dl (8.6-10.4); GLUCOSE,RANDOM 93 mg/dL (75-110)
[2017-03-10] MEDS: Dextrose 5%/0.45% NS 1,000 ML IV SCH (09:00)
[2017-03-10 16:15] VITALS: BP 165/95; PULSE 66; TEMP 99.4; O2SAT 96
--- NOTE | 2017-03-10 16:39 | CP.PCM.PN ---
Subjective - Date & Time of Evaluation Date of Evaluation: 03/10/17 Time of Evaluation: 10:40 - Subjective Subjective: Patient seen today , denies any abdominal pain, N/V/D , fever, chills, c/o mild bloating, + BM , tolerating t without any problem s s/p lap cholesystectomy POD#2 Objective - Vital Signs/Intake and Output Vital Signs (last 24 hours): Temp Pulse Resp BP Pulse Ox 99.4 F 66 20 165/95 H 96 03/10/17 16:00 03/10/17 16:00 03/10/17 16:00 03/10/17 16:00 03/10/17 16:00 Intake and Output: 03/10/17 03/10/17 06:59 18:59 Intake Total 800 560 Balance 800 560 - Medications Medications: Current Medications Famotidine (Pepcid) 20 mg IVP BID [facility] Last Admin: 03/10/17 10:39 Dose: 20 mg Heparin Sodium (Porcine) (Heparin) 5,000 units SC Q8 [facility] Last Admin: 03/10/17 14:01 Dose: 5,000 units Hydromorphone HCl (Dilaudid) 0.5 mg IVP Q10M PRN PRN Reason: Pain, severe (8-10) Ceftriaxone Sodium 1 gm/ (Sodium Chloride) 100 mls @ 100 mls/hr IVPB DAILY [facility] Last Admin: 03/10/17 11:00 Dose: 100 mls/hr Metronidazole (Flagyl) 500 mg in 100 mls @ 100 mls/hr IVPB Q8H [facility] Last Admin: 03/10/17 13:28 Dose: 100 mls/hr Dextrose/Sodium Chloride (Dextrose 5%/0.45% Ns 1000 Ml) 1,000 mls @ 100 mls/hr IV .Q10H [facility] Last Admin: 03/10/17 09:00 Dose: Not Given Morphine Sulfate (Morphine) 2 mg IVP Q4 PRN PRN Reason: Pain, moderate (4-7) Last Admin: 03/08/17 18:24 Dose: 2 mg Nitroglycerin (Nitro-Bid 2% Oint) 0 ea TOP Q6H [facility] Last Admin: 03/10/17 12:30 Dose: 1 ea - Labs Labs: 03/10/17 07:56 03/10/17 07:56 PT 16.1 SECONDS (9.7-12.2) H 03/08/17 13:37 INR 1.4 03/08/17 13:37 APTT 30 SECONDS (21-34) 03/08/17 13:37 - Constitutional Appears: Well, No Acute Distress - Respiratory Exam Respiratory Exam: Clear to Ausculation Bilateral, NORMAL BREATHING PATTERN - Cardiovascular Exam Cardiovascular Exam: REGULAR RHYTHM, +S1, +S2 - GI/Abdominal Exam GI & Abdominal Exam: Soft, Tenderness (nid abdomen / dressing to the umblical area and RUQ clean dry, small amt old drainage noted ) - Neurological Exam Neurological Exam: Alert, Awake, Oriented x3 Assessment and Plan - Assessment and Plan (Free Text) Assessment: A/P 56 yr old male admitted for abdominal pain / cholecystitis s/p lap. cholesystectomy and hernia repair a febrile BP elevated, will start on norvasc wbc- WNL seen by Dr. Chung an d cleared for discharge home toa and f/u with Dr. Chung office on ( full discharge instructions given to pt ) D/W Dr.. Dotson, stable for discharge home otday and f/u wit Dr. Schmidt office next monday Discharge plan disussed with dougie ann , who understands and agrees with plan RX given
--- NOTE | 2017-03-11 03:24 | CP.PCM.DIS ---
Provider - Provider Date of Admission: 03/07/17 20:24 Attending physician: Aurelio Dotson MD Diagnosis - Discharge Diagnosis (1) S/P cholecystectomy Status: Acute (2) HTN (hypertension) Status: Acute (3) Constipation Status: Acute (4) Abdominal colic Status: Acute (5) Biliary colic Status: Acute Hospital Course - Lab Results Lab Results: Micro Results 03/07/17 20:45 Blood Blood Culture - Preliminary NO GROWTH AFTER 3 DAYS 03/07/17 20:15 Blood Blood Culture - Preliminary NO GROWTH AFTER 3 DAYS 03/07/17 20:18 Urine Urine Culture - Final Streptococcus Viridans 03/08/17 15:15 Bile Gram Stain - Preliminary 03/08/17 15:15 Bile Body Fluid Culture - Preliminary NO GROWTH AFTER 24 HOURS Most Recent Lab Values WBC 8.1 K/uL (4.8-10.8) 03/10/17 07:56 RBC 4.81 Mil/uL (4.40-5.90) 03/10/17 07:56 Hgb 12.7 g/dL (12.0-18.0) 03/10/17 07:56 Hct 37.9 % (35.0-51.0) 03/10/17 07:56 MCV 78.8 fL (80.0-94.0) L 03/10/17 07:56 MCH 26.4 pg (27.0-31.0) L 03/10/17 07:56 MCHC 33.5 g/dL (33.0-37.0) 03/10/17 07:56 RDW 14.1 % (11.5-14.5) 03/10/17 07:56 Plt Count 183 K/uL (130-400) 03/10/17 07:56 MPV 7.9 fL (7.2-11.7) 03/10/17 07:56 Neut % (Auto) 78.4 % (50.0-75.0) H 03/10/17 07:56 Lymph % (Auto) 14.0 % (20.0-40.0) L 03/10/17 07:56 [place] % (Auto) 7.1 % (0.0-10.0) 03/10/17 07:56 Eos % (Auto) 0.2 % (0.0-4.0) 03/10/17 07:56 Baso % (Auto) 0.3 % (0.0-2.0) 03/10/17 07:56 Neut # 6.3 K/uL (1.8-7.0) 03/10/17 07:56 Lymph # 1.1 K/uL (1.0-4.3) 03/10/17 07:56 [place] # 0.6 K/uL (0.0-0.8) 03/10/17 07:56 Eos # 0.0 K/uL (0.0-0.7) 03/10/17 07:56 Baso # 0.0 K/uL (0.0-0.2) 03/10/17 07:56 PT 16.1 SECONDS (9.7-12.2) H 03/08/17 13:37 INR 1.4 03/08/17 13:37 APTT 30 SECONDS (21-34) 03/08/17 13:37 Sodium 133 mmol/L (132-148) 03/10/17 07:56 Potassium 4.2 mmol/L (3.6-5.2) 03/10/17 07:56 Chloride 101 mmol/L (98-107) 03/10/17 07:56 Carbon Dioxide 25 mmol/L (22-30) 03/10/17 07:56 Anion Gap 12 (10-20) 03/10/17 07:56 BUN 11 mg/dL (9-20) 03/10/17 07:56 Creatinine 1.0 mg/dL (0.8-1.5) 03/10/17 07:56 Est GFR ( Amer) > 60 03/10/17 07:56 Est GFR (Non-Af Amer) > 60 03/10/17 07:56 Random Glucose 93 mg/dL (75-110) 03/10/17 07:56 Calcium 8.2 mg/dl (8.6-10.4) L 03/10/17 07:56 Total Bilirubin 1.0 mg/dL (0.2-1.3) 03/10/17 07:56 AST 123 U/L (17-59) H D 03/10/17 07:56 ALT 132 U/L (21-72) H 03/10/17 07:56 Alkaline Phosphatase 109 U/L (38-126) 03/10/17 07:56 Total Protein 7.0 g/dL (6.3-8.3) 03/10/17 07:56 Albumin 3.2 g/dL (3.5-5.0) L 03/10/17 07:56 Globulin 3.8 gm/dL (2.2-3.9) 10 07:56 Albumin/Globulin Ratio 0.8 (1.0-2.1) L 03/10/17 07:56 Lipase 161 U/L (23-300) 03/07/17 08:42 Urine Color Yellow (YELLOW) 03/07/17 09:30 Urine Clarity Hazy (Clear) 03/07/17 09:30 Urine pH 7.0 (5.0-8.0) 03/07/17 09:30 Ur Specific [place] 1.017 (1.003-1.030) 03/07/17 09:30 Urine Protein Negative mg/dL (NEGATIVE) 03/07/17 09:30 Urine Glucose (UA) Normal mg/dL (Normal) 03/07/17 09:30 Urine Ketones Trace mg/dL (NEGATIVE) 03/07/17 09:30 Urine Blood 1+ (NEGATIVE) H 03/07/17 09:30 Urine Nitrate Negative (NEGATIVE) 03/07/17 09:30 Urine Bilirubin Negative (NEGATIVE) 03/07/17 09:30 Urine Urobilinogen 2.0 mg/dL (0.2-1.0) 03/07/17 09:30 Ur Leukocyte Esterase 1+ [place]/uL (Negative) H 03/07/17 09:30 Urine WBC (Auto) 18 /hpf (0-5) H 03/07/17 09:30 Urine RBC (Auto) 8 /hpf (0-3) H 03/07/17 09:30 Ur Squamous Epith Cells 3 /hpf (0-5) 03/07/17 09:30 Amorphous Sediment Rare /ul (<OCC) H 03/07/17 09:30 Urine Bacteria Occ (<OCC) H 03/07/17 09:30 Urine Opiates Screen Negative (NEGATIVE) 03/07/17 09:30 Urine Methadone Screen Negative (NEGATIVE) 03/07/17 09:30 Ur Barbiturates Screen Negative (NEGATIVE) 03/07/17 09:30 Ur Phencyclidine Scrn Negative (NEGATIVE) 03/07/17 09:30 Ur Amphetamines Screen Negative (NEGATIVE) 03/07/17 09:30 U Benzodiazepines Scrn Negative (NEGATIVE) 03/07/17 09:30 U Oth Cocaine Metabols Negative (NEGATIVE) 03/07/17 09:30 U Cannabinoids Screen Negative (NEGATIVE) 03/07/17 09:30 - Hospital Course Hospital Course: A/P 56 yr old male admitted for abdominal pain / cholecystitis s/p lap. cholesystectomy and hernia repair a febrile BP elevated, will start on norvasc wbc- WNL seen by Dr. Chung an d cleared for discharge home [place] and f/u with Dr. Chung office on ( full discharge instructions given to pt ) stable for discharge home otday and f/u with me in office next monday Discharge plan disussed with dougie ann , who understands and agrees with plan RX given Discharge Exam - Head Exam Head Exam: ATRAUMATIC, NORMAL INSPECTION, NORMOCEPHALIC - Eye Exam Eye Exam: EOMI, Normal appearance, PERRL Pupil Exam: NORMAL ACCOMODATION, PERRL - ENT Exam ENT Exam: Mucous Membranes Moist - Respiratory Exam Respiratory Exam: Clear to PA & Lateral, NORMAL BREATHING PATTERN - Cardiovascular Exam Cardiovascular Exam: REGULAR RHYTHM, +S1, +S2 - GI/Abdominal Exam GI & Abdominal Exam: Normal Bowel Sounds Discharge Plan - Discharge Medications Prescriptions: Cefadroxil [Duricef] 500 mg PO BID #10 cap amLODIPine [Norvasc] 5 mg PO DAILY #30 tab traMADol [Ultram] 50 mg PO Q6 PRN #20 tab PRN Reason: Pain, Severe (8-10) - Follow Up Plan Condition: STABLE Disposition: HOME/ ROUTINE Instructions: Cefadroxil (By mouth), Amlodipine (By mouth), Tramadol (By mouth) , Constipation (DC), Laparoscopic Cholecystectomy (DC), Hypertension (DC) Additional Instructions: Please f/u with Dr. Dotson next monday Please f/u with Dr. chung office on 03/17/17 Continue medication as per med. rec. Referrals: Aurelio Dotson MD [Staff Provider] - Danielito Stewart MD [Staff Provider] -
== END 2017-03-10 17:25 | disposition home or self-care (01) | DRG 418 ==
LOC: C.ER 07:50 → C.9OBSV 16:02 → OBSVTOIN 20:24 → C.9E 20:42 → C.3T 21:32
PROVIDERS: ADMIT Internal Medicine; ATTEND Internal Medicine
PROC: 0WUF4JZ Supplement Abdominal Wall with Synthetic Substitute, Percutaneous Endoscopic Approach (ICD-10-PCS; 2017-03-08)
PROC: 0FB04ZX Excision of Liver, Percutaneous Endoscopic Approach, Diagnostic (ICD-10-PCS; 2017-03-08)
PROC: 0W9F40Z Drainage of Abdominal Wall with Drainage Device, Percutaneous Endoscopic Approach (ICD-10-PCS; 2017-03-08)
PROC: 0FT44ZZ Resection of Gallbladder, Percutaneous Endoscopic Approach (ICD-10-PCS; principal; 2017-03-08 14:45)
DX: K80.00 Calculus of gallbladder with acute cholecystitis without obstruction (principal); K42.0 Umbilical hernia with obstruction, without gangrene; K59.00 Constipation, unspecified; K75.9 Inflammatory liver disease, unspecified; I10 Essential (primary) hypertension; G89.18 Other acute postprocedural pain